=== PATIENT | male | born 1975 | race American Indian/Alaskan Native ===

== ENCOUNTER 2016-10-23 16:25 | Emergency (ER) | payer OTHER ==
[2016-10-23 17:02] VITALS: BP 120/77
[2016-10-23 17:57] LABS: Hematocrit 45.5 % (35.5-45.6); Hemoglobin 15.1 gm/dl (11.8-15.2); Mean Corpuscular HGB Conc 33 % (32-34); Mean Corpuscular Hemoglobin 33 pg (28-32); Mean Corpuscular Volume 101 fl (84-94); Platelet Count 219 K/mm3 (140-440); Red Blood Count 4.51 M/mm3 (3.65-5.03); White Blood Count 9.8 K/mm3 (4.5-11.0)
--- NOTE | 2016-10-23 18:45 | Cat Scan Report ---
FINAL REPORT EXAM: CT NECK WO CON HISTORY: trauma/fll with head injury TECHNIQUE: Standard CT cervical spine obtained at 1.25 millimeter axial increments. Coronal and sagittal reconstruction was also performed. PRIORS: None. FINDINGS: The vertebral bodies are intact. There is no evidence for acute fracture. There is no evidence for paravertebral soft tissue swelling. Alignment is maintained. Large bony spur anterior to C5-C6 and C7-T1 is seen. IMPRESSION: No acute abnormality of the cervical spine.
--- NOTE | 2016-10-23 18:53 | Cat Scan Report ---
FINAL REPORT EXAM: CT HEAD/BRAIN WO CON HISTORY: head trauma,hematoma TECHNIQUE: CT imaging acquired through the head without intravenous contrast. Transaxial reformations are provided. PRIORS: None. FINDINGS: The ventricles, cisterns and sulci are normal. No intraparenchymal or extra-axial mass, hemorrhage, or mass effect. I[place] and white-matter differentiation is normal. Normal spherical shape of the globes. Paranasal sinuses and mastoid air cells are clear. No skull or facial fracture visualized. Right occipital scalp injury. IMPRESSION: No acute intracranial abnormality. Right occipital scalp injury. No skull fracture.
[2016-10-23 19:48] LABS: Anion Gap 19 mmol/L; BUN/Creatinine Ratio 12.22; Blood Urea Nitrogen 11 mg/dL (9-20); Calcium 9.4 mg/dL (8.4-10.2); Carbon Dioxide 24 mmol/L (22-30); Chloride 101.4 mmol/L (98-107); Glucose 99 mg/dL (75-100); Potassium 3.7 mmol/L (3.6-5.0); Sodium 141 mmol/L (137-145)
--- NOTE | 2016-10-24 07:11 | XRay Report ---
Right elbow 3 views: History: Swollen right elbow. Findings: No acute abnormality. No fracture dislocation or soft tissue calcification. Impression: Essentially negative right elbow.
== END 2016-10-23 21:00 | disposition left against medical advice (07) ==
LOC: ED 16:25
DX: S51.812A Laceration without foreign body of left forearm, initial encounter (principal); W20.8XXA Other cause of strike by thrown, projected or falling object, initial encounter; Y93.89 Activity, other specified; Y99.8 Other external cause status; Y92.89 Other specified places as the place of occurrence of the external cause; Z53.21 Procedure and treatment not carried out due to patient leaving prior to being seen by health care provider
CPT/HCPCS: 36415; 70450; 70490; 80048; 82140; 85027